=== PATIENT | female | born 1980 | race African-American/Black ===

== ENCOUNTER 2019-06-29 12:21 | Inpatient (IN) ==
[2019-06-29] MEDS ORDERED: SODIUM CHLORIDE 0.9% 1,000 ML IV STA (14:47)
[2019-06-29] MEDS ORDERED: VANCOMYCIN INJ 1,000 MG in SODIUM CHLORIDE 0.9% 250 ML IV STA (15:03)
[2019-06-29 16:07] LABS: Albumin 3.5 G/DL (3.4-5.0); Bilirubin,Total 0.4 MG/DL (0.2-1.0); Calcium 9.2 MG/DL (8.5-10.1); Osmolality,Calculated 270.8 MOS/KG (273-304); Total Protein 8.4 G/DL (6.4-8.3)
[2019-06-29 16:20] LABS: Apearance,Urine CLEAR (Clear); Bacteria,Urine Occasional /HPF (Few); Bilirubin,Urine Negative (Negative); Blood, Urine Moderate mg/dL (Negative); Glucose,Urine (UA) Negative (Negative); Ketones,Urine Negative (Negative); Mucus,Urine Few /LPF (Occasional); Nitrite,Urine Negative (Negative); Protein,Urine Negative; RBC,Urine 29 /HPF (0-4); Squamous Epithelial Cell,Urine Occasional /HPF (0-10); Urine Color Yellow (Yellow); Urine Specific Gravity 1.008 (1.001-1.035); Urine Urobilinogen < 2.0 EU/DL (0.2-1.0)
[2019-06-29 16:36] LABS: Basophils % 0.1 % (0.0-0.8); Eosinophils % 0.1 % (0.00-10.9); Hematocrit 41.2 VOL% (35.7-47.0); Hemoglobin 13.5 GM/DL (12.0-16.0); Immature Granulocytes % 0.3 %; Immature Granulocytes Absolute 0.03 #; Lymphocytes % 18.2 % (21.3-54.2); Mean Corpuscular HGB Conc 32.8 GM/DL (32-36); Mean Corpuscular Volume 78.8 FL (87-102); Mean Platelet Volume 8.9 FL (9.6-12.0); Neutrophils % 76.3 % (38.7-73.9); Platelet Count 282 T/CUMM (130-400); Red Blood Count 5.23 MC/CUMM (3.8-5.5); Red Cell Distribution Width 14.4 % (9.3-17.3); White Blood Count 10.9 T/CUMM (4-12)
[2019-06-29] MEDS ORDERED: POTASSIUM CHLORIDE 20 MEQ TABLET PO STA (16:37)
[2019-06-29] MEDS ORDERED: MORPHINE 4 MG/1 ML VIAL ONE (16:39)
[2019-06-29] MEDS ORDERED: ONDANSETRON 4 MG/2 ML VIAL ONE (16:39)
[2019-06-29] MEDS ORDERED: ACETAMINOPHEN 325 MG TABLET PO PRN (16:45)
[2019-06-29] MEDS ORDERED: MORPHINE 4 MG/1 ML VIAL IV PRN (16:45)
[2019-06-29] MEDS ORDERED: MORPHINE 4 MG/1 ML VIAL IV STA (16:52)
[2019-06-29] MEDS ORDERED: ONDANSETRON 4 MG/2 ML VIAL IV STA (16:53)
[2019-06-29] MEDS: SODIUM CHLORIDE 0.9% 1,000 ML IV SCH (19:12)
[2019-06-29] MEDS: ENOXAPARIN 40 MG/0.4 ML SYRINGE SUBCUT SCH (19:22)
[2019-06-29] MEDS: HYDROmorphone 2 MG/1 ML VIAL IV PRN (21:36)
[2019-06-29] MEDS: cefTRIAXone 1,000 MG in SYRINGE 1 EACH IV SCH (21:36)
[2019-06-30] MEDS: HYDROmorphone 2 MG/1 ML VIAL IV PRN ×5 (02:06→22:47)
[2019-06-30] MEDS: SODIUM CHLORIDE 0.9% 1,000 ML IV SCH ×3 (02:15→22:48)
[2019-06-30 05:41] LABS: Basophils % 0.1 % (0.0-0.8); Eosinophils % 0.1 % (0.00-10.9); Hematocrit 35.8 VOL% (35.7-47.0); Hemoglobin 11.6 GM/DL (12.0-16.0); Immature Granulocytes % 0.3 %; Immature Granulocytes Absolute 0.03 #; Lymphocytes # 2.2 10*3/uL (1.4-4.0); Mean Corpuscular HGB Conc 32.4 GM/DL (32-36); Mean Corpuscular Volume 80.3 FL (87-102); Mean Platelet Volume 9.5 FL (9.6-12.0); Monocytes % 6.3 % (1.7-12.7); Neutrophils % 70.2 % (38.7-73.9); Platelet Count 241 T/CUMM (130-400); Red Blood Count 4.46 MC/CUMM (3.8-5.5); Red Cell Distribution Width 14.6 % (9.3-17.3); White Blood Count 9.5 T/CUMM (4-12)
[2019-06-30 06:19] LABS: Alanine Aminotransferase < 9 U/L (13-56); Albumin 2.7 G/DL (3.4-5.0); Alkaline Phosphatase 83 U/L (45-117); Aspartate Amino Transferase 6 U/L (0-37); Blood Urea Nitrogen 6 MG/DL (7-18); Calcium 8.4 MG/DL (8.5-10.1); Estimated Glom Filtration Rate 153 ML/MIN; Glucose 86 MG/DL (74-106); Osmolality,Calculated 271.7 MOS/KG (273-304)
[2019-06-30] MEDS: POTASSIUM CHLORIDE 20 MEQ TABLET PO PRN (06:46)
[2019-06-30] MEDS: PANTOPRAZOLE 40 MG TABLET PO SCH (09:14)
[2019-06-30] MEDS: VANCOMYCIN INJ 1,250 MG in SODIUM CHLORIDE 0.9% 250 ML IV SCH ×2 (10:04→22:48)
[2019-06-30] MEDS ORDERED: ceFAZolin 1,000 MG in SYRINGE 1 EACH IV ONE (10:29)
[2019-06-30] MEDS ORDERED: BUPIVACAINE 0.25% /EPI 10 ML VIAL ONE (13:25)
[2019-06-30] MEDS ORDERED: LIDOCAINE 2% 5 ML VIAL ONE (14:50)
[2019-06-30] MEDS ORDERED: MIDAZOLAM 2 MG/2 ML VIAL ONE (14:50)
[2019-06-30] MEDS ORDERED: SEVOFLURANE 1 UNIT/15 MINUTE INH ONE (14:50)
[2019-06-30] MEDS ORDERED: propofoL 200 MG/20 ML VIAL IV ONE (14:50)
[2019-06-30] MEDS ORDERED: SUCCINYLCHOLINE 200 MG/10 ML VIAL ONE (14:51)
[2019-06-30] MEDS ORDERED: fentaNYL 100 MCG/2 ML VIAL ONE (14:51)
[2019-06-30] MEDS ORDERED: ONDANSETRON 4 MG/2 ML VIAL ONE (14:51)
[2019-06-30] MEDS ORDERED: ROCURONIUM 100 MG/10 ML VIAL IV ONE (14:51)
[2019-06-30] MEDS ORDERED: HYDROmorphone 2 MG/1 ML VIAL IV PRN (15:11)
[2019-06-30] MEDS ORDERED: ONDANSETRON 4 MG/2 ML VIAL IV PRN (15:11)
[2019-06-30] MEDS: ENOXAPARIN 40 MG/0.4 ML SYRINGE SUBCUT SCH (17:29)
[2019-06-30] MEDS: cefTRIAXone 1,000 MG in SYRINGE 1 EACH IV SCH (20:15)
[2019-06-30] MEDS ORDERED: ALUMINUM/MAGNES/SIMETH MAX STR 30 ML UDCUP PO PRN (23:31)
[2019-07-01] MEDS: HYDROmorphone 2 MG/1 ML VIAL IV PRN ×3 (04:13→14:15)
[2019-07-01 06:33] LABS: Basophils % 0.2 % (0.0-0.8); Eosinophils % 0.4 % (0.00-10.9); Immature Granulocytes % 0.2 %; Immature Granulocytes Absolute 0.01 #; Lymphocytes # 1.4 10*3/uL (1.4-4.0); Lymphocytes % 26.1 % (21.3-54.2); Mean Corpuscular HGB Conc 32.4 GM/DL (32-36); Mean Corpuscular Volume 80.2 FL (87-102); Mean Platelet Volume 9.5 FL (9.6-12.0); Monocytes % 6.3 % (1.7-12.7); Neutrophils % 66.8 % (38.7-73.9); Platelet Count 249 T/CUMM (130-400); Red Blood Count 4.24 MC/CUMM (3.8-5.5); Red Cell Distribution Width 14.6 % (9.3-17.3); White Blood Count 5.2 T/CUMM (4-12)
[2019-07-01 06:50] LABS: Alanine Aminotransferase < 9 U/L (13-56); Albumin 2.5 G/DL (3.4-5.0); Alkaline Phosphatase 73 U/L (45-117); Aspartate Amino Transferase 9 U/L (0-37); Bilirubin,Total < 0.39 MG/DL (0.2-1.0); Blood Urea Nitrogen 4 MG/DL (7-18); Calcium 8.6 MG/DL (8.5-10.1); Estimated Glom Filtration Rate 153 ML/MIN; Glucose 77 MG/DL (74-106); Total Protein 6.6 G/DL (6.4-8.3)
[2019-07-01] MEDS: POTASSIUM CHLORIDE 20 MEQ TABLET PO PRN ×2 (09:35→14:14)
[2019-07-01] MEDS: PANTOPRAZOLE 40 MG TABLET PO SCH (09:35)
[2019-07-01] MEDS: SODIUM CHLORIDE 0.9% 1,000 ML IV SCH ×2 (09:37→11:47)
[2019-07-01] MEDS: ONDANSETRON 4 MG/2 ML VIAL IV PRN ×2 (09:41→14:18)
[2019-07-01] MEDS: VANCOMYCIN INJ 1,250 MG in SODIUM CHLORIDE 0.9% 250 ML IV SCH (10:24)
[2019-07-01] MEDS ORDERED: NICOTINE 21 MG/24 HR PATCH TRANSDERM SCH (11:16)
[2019-07-01 15:53] VITALS: BP 118/75
[2019-07-01] MEDS: ENOXAPARIN 40 MG/0.4 ML SYRINGE SUBCUT SCH (18:12)
== END 2019-07-01 18:35 | disposition home or self-care (01) | DRG 581 ==
LOC: N.ED 12:21 → N.EDINP 16:45 → N.5E 19:08
PROVIDERS: ADMIT Internal Medicine; ATTEND Internal Medicine

== ENCOUNTER 2020-12-05 06:09 | Inpatient (IN) ==
[~2020-12-05 06:09] MED LIST: ceFAZolin 2,000 MG/50 ML DUPLEX IV ONE
[2020-12-05] MEDS ORDERED: EPINEPHrine 1 MG/ML VIAL ONE (06:24)
[2020-12-05] MEDS ORDERED: LACTATED RINGERS 1,000 ML IV SCH (06:30)
[2020-12-05] MEDS ORDERED: SEVOFLURANE 1 UNIT/15 MINUTE INH ONE (06:42)
[2020-12-05] MEDS ORDERED: LIDOCAINE 2% 5 ML VIAL ONE (06:42)
[2020-12-05] MEDS ORDERED: ONDANSETRON 4 MG/2 ML VIAL ONE (06:42)
[2020-12-05] MEDS ORDERED: fentaNYL 100 MCG/2 ML VIAL ONE ×2 (06:42→08:15)
[2020-12-05] MEDS ORDERED: MIDAZOLAM 2 MG/2 ML VIAL ONE (06:42)
[2020-12-05] MEDS ORDERED: propofoL 200 MG/20 ML VIAL IV ONE (06:42)
[2020-12-05] MEDS ORDERED: ACETAMINOPHEN 325 MG TABLET PO PRN (08:18)
[2020-12-05] MEDS ORDERED: HYDROmorphone 2 MG/1 ML VIAL IV PRN (08:18)
[2020-12-05] MEDS: ONDANSETRON 4 MG/2 ML VIAL IV PRN (08:33)
[2020-12-05] MEDS: HYDROmorphone 2 MG/1 ML VIAL IV PRN ×4 (08:33→09:13)
[2020-12-05] MEDS ORDERED: MEPERIDINE 25 MG/1 ML VIAL IV PRN (08:59)
[2020-12-05] MEDS ORDERED: ONDANSETRON 4 MG/2 ML VIAL IV PRN (08:59)
[2020-12-05] MEDS: PANTOPRAZOLE 40 MG TABLET PO SCH (13:30)
[2020-12-05] MEDS: HYDROcod/ACETAMIN 7.5-325 MG/15 ML UDCUP PO PRN ×2 (16:04→21:21)
[2020-12-06] MEDS: PANTOPRAZOLE 40 MG TABLET PO SCH (08:15)
[2020-12-06] MEDS: HYDROcod/ACETAMIN 7.5-325 MG/15 ML UDCUP PO PRN (10:14)
[2020-12-06] MEDS ORDERED: hydrOXYzine HCL 10 MG TABLET PO PRN (10:43)
[2020-12-06] MEDS: HYDROmorphone 2 MG/1 ML VIAL IV PRN ×3 (12:19→23:33)
[2020-12-06] MEDS: ONDANSETRON 4 MG/2 ML VIAL IV PRN (13:15)
[2020-12-06] MEDS: carvediloL 25 MG TABLET PO SCH (16:18)
[2020-12-06] MEDS: PRAZOSIN 1 MG CAPSULE PO SCH (20:31)
[2020-12-06] MEDS: DOXEPIN PO SCH (22:54)
[2020-12-07] MEDS: carvediloL 25 MG TABLET PO SCH ×2 (08:33→17:08)
[2020-12-07] MEDS: amLODIPine 10 MG TABLET PO SCH (08:33)
[2020-12-07] MEDS: PANTOPRAZOLE 40 MG TABLET PO SCH (08:33)
[2020-12-07] MEDS: HYDROXYCHLOROQUINE 200 MG TABLET PO SCH (08:33)
[2020-12-07] MEDS: PARoxetine 20 MG TABLET PO SCH (08:33)
[2020-12-07] MEDS: CHOLECALCIFEROL 5,000 UNIT TABLET PO SCH (08:33)
[2020-12-07] MEDS: ONDANSETRON 4 MG/2 ML VIAL IV PRN (08:34)
[2020-12-07] MEDS: HYDROmorphone 2 MG/1 ML VIAL IV PRN ×4 (08:35→21:38)
[2020-12-07] MEDS: HYDROcod/ACETAMIN 7.5-325 MG/15 ML UDCUP PO PRN ×2 (10:17→19:25)
[2020-12-07] MEDS: ENOXAPARIN 40 MG/0.4 ML SYRINGE SUBCUT SCH (17:09)
[2020-12-07] MEDS: PRAZOSIN 1 MG CAPSULE PO SCH (20:58)
[2020-12-07] MEDS: DOXEPIN PO SCH (22:00)
[2020-12-08] MEDS: HYDROmorphone 2 MG/1 ML VIAL IV PRN ×5 (01:22→17:30)
[2020-12-08] MEDS: CHOLECALCIFEROL 5,000 UNIT TABLET PO SCH (08:49)
[2020-12-08] MEDS: PARoxetine 20 MG TABLET PO SCH (08:50)
[2020-12-08] MEDS: HYDROXYCHLOROQUINE 200 MG TABLET PO SCH (08:50)
[2020-12-08] MEDS: PANTOPRAZOLE 40 MG TABLET PO SCH (08:50)
[2020-12-08] MEDS: carvediloL 25 MG TABLET PO SCH ×2 (10:32→17:12)
[2020-12-08] MEDS: amLODIPine 10 MG TABLET PO SCH (10:32)
[2020-12-08] MEDS: HYDROcod/ACETAMIN 7.5-325 MG/15 ML UDCUP PO PRN (13:06)
[2020-12-08 16:32] VITALS: BP 138/83
[2020-12-08] MEDS: ENOXAPARIN 40 MG/0.4 ML SYRINGE SUBCUT SCH (16:54)
== END 2020-12-08 17:56 | disposition home health service (06) | DRG 578 ==
LOC: N.OR 06:09 → N.SDSINP 06:11 → N.5E 13:26
PROVIDERS: ADMIT Student in an Organized Health Care Education/Training Program; ATTEND Student in an Organized Health Care Education/Training Program